=== PATIENT | male | born 1950 | race Caucasian/White ===

== ENCOUNTER → 2019-11-24 | Outpatient (CLI) | payer OTHER | LOC: SJCVCIMAG 08:58 | PROVIDERS: ATTEND Internal Medicine Cardiovascular Disease | DX: I49.9 Cardiac arrhythmia, unspecified (principal); E11.51 Type 2 diabetes mellitus with diabetic peripheral angiopathy without gangrene; I82.401 Acute embolism and thrombosis of unspecified deep veins of right lower extremity; E78.00 Pure hypercholesterolemia, unspecified; I10 Essential (primary) hypertension; I87.2 Venous insufficiency (chronic) (peripheral); D68.59 Other primary thrombophilia; M79.604 Pain in right leg; M79.605 Pain in left leg; N52.9 Male erectile dysfunction, unspecified ==

== ENCOUNTER → 2021-04-26 | Outpatient (CLI) | payer OTHER, MEDICARE | LOC: SJCVCIMAG 13:45 | PROVIDERS: ATTEND Internal Medicine Cardiovascular Disease | DX: I82.401 Acute embolism and thrombosis of unspecified deep veins of right lower extremity (principal); I82.501 Chronic embolism and thrombosis of unspecified deep veins of right lower extremity; E11.9 Type 2 diabetes mellitus without complications; E78.00 Pure hypercholesterolemia, unspecified; I10 Essential (primary) hypertension; Z72.89 Other problems related to lifestyle; Z87.891 Personal history of nicotine dependence; Z79.899 Other long term (current) drug therapy; Z79.84 Long term (current) use of oral hypoglycemic drugs ==

== ENCOUNTER → 2021-05-27 | Outpatient (CLI) | payer OTHER, MEDICARE | LOC: SJCVCIMAG 07:58 | PROVIDERS: ATTEND Internal Medicine Cardiovascular Disease | DX: I82.491 Acute embolism and thrombosis of other specified deep vein of right lower extremity (principal); M79.604 Pain in right leg; I10 Essential (primary) hypertension; E78.5 Hyperlipidemia, unspecified; E11.9 Type 2 diabetes mellitus without complications ==

== ENCOUNTER → 2021-05-31 | Outpatient (CLI) | payer OTHER, MEDICARE | LOC: SJCVC 13:59 | PROVIDERS: ATTEND Nuclear Medicine Nuclear Cardiology | DX: I82.411 Acute embolism and thrombosis of right femoral vein (principal); I87.2 Venous insufficiency (chronic) (peripheral); E78.00 Pure hypercholesterolemia, unspecified; I10 Essential (primary) hypertension; E11.9 Type 2 diabetes mellitus without complications; K21.9 Gastro-esophageal reflux disease without esophagitis; Z87.891 Personal history of nicotine dependence; Z72.89 Other problems related to lifestyle; Z79.84 Long term (current) use of oral hypoglycemic drugs; Z79.899 Other long term (current) drug therapy ==

== ENCOUNTER → 2021-06-09 | Outpatient (CLI) | payer OTHER, MEDICARE ==
[~2021-06-09] VITALS: Ht 177.8 cm; Wt 111.6 kg
[~2021-06-09] MED LIST: AMARYL2 M1 PO; BENICAR20 MG PO; CRESTOR20 MG PO; VISINE ALLERGY15 ML OPHTHALMIC; XARELTO20 MG PO
[2021-06-09 13:28] VITALS: BP 155/82
[2021-06-09 13:34] LABS: HEMATOCRIT 49.2 % (42.0-52.0); HEMOGLOBIN 16.3 gm/dL (14.0-18.0); MCH 30.1 pg (26.0-34.0); MCHC 33.1 g/dL (28.0-37.0); RBC 5.41 mil/uL (4.50-6.00); WBC 6.5 thou/uL (4.0-11.0)
[2021-06-09 13:42] LABS: POTASSIUM 4.6 mmol/L (3.5-5.1)
[2021-06-09 14:06] LABS: INR 1.2; PROTIME 12.7 Seconds (9.3-11.4)
== END | disposition home or self-care (01) ==
LOC: CATH 10:48
PROVIDERS: ATTEND Nuclear Medicine Nuclear Cardiology
DX: I82.511 Chronic embolism and thrombosis of right femoral vein (principal); I10 Essential (primary) hypertension; E11.9 Type 2 diabetes mellitus without complications; Z98.890 Other specified postprocedural states; Z79.899 Other long term (current) drug therapy; Z79.01 Long term (current) use of anticoagulants; Z87.891 Personal history of nicotine dependence